=== PATIENT | female | born 2000 | race Caucasian/White ===

== ENCOUNTER → 2022-02-08 15:42 | Outpatient (BNVA) | payer OTHER, SELFPAY | PROVIDERS: Visit Provider Nurse Practitioner Women's Health | DX: Z01.419 Encounter for gynecological examination (general) (routine) without abnormal findings (principal) | CPT/HCPCS: 84702; 88175 ==

== ENCOUNTER → 2023-05-03 08:15 | Outpatient (BNVA) | payer OTHER, SELFPAY | PROVIDERS: Visit Provider Nurse Practitioner Women's Health | DX: Z32.00 Encounter for pregnancy test, result unknown (principal) | CPT/HCPCS: 84702 ==

== ENCOUNTER → 2023-10-24 16:40 | Outpatient (BNVA) | payer OTHER, SELFPAY | PROVIDERS: Visit Provider Nurse Practitioner Women's Health | DX: N92.6 Irregular menstruation, unspecified (principal) | CPT/HCPCS: 84702 ==

== ENCOUNTER → 2023-10-26 15:00 | Outpatient (BNVA) | payer OTHER, SELFPAY | PROVIDERS: Visit Provider Nurse Practitioner Women's Health | DX: N92.6 Irregular menstruation, unspecified (principal) | CPT/HCPCS: 84702 ==

== ENCOUNTER → 2023-11-08 09:35 | Outpatient (BNVA) | payer OTHER, SELFPAY | PROVIDERS: Visit Provider Nurse Practitioner Women's Health | DX: Z36.87 Encounter for antenatal screening for uncertain dates (principal) | CPT/HCPCS: 76817 ==

== ENCOUNTER → 2023-11-13 08:30 | Outpatient (BNVA) | payer MEDICAID, SELFPAY | PROVIDERS: Visit Provider Nurse Practitioner Women's Health | DX: Z34.90 Encounter for supervision of normal pregnancy, unspecified, unspecified trimester (principal); Z83.3 Family history of diabetes mellitus | CPT/HCPCS: 83036; 84315 ==

== ENCOUNTER → 2023-12-06 07:53 | Outpatient (BNVA) | payer MEDICAID, SELFPAY | PROVIDERS: Visit Provider Obstetrics & Gynecology | DX: Z34.01 Encounter for supervision of normal first pregnancy, first trimester (principal); Z34.90 Encounter for supervision of normal pregnancy, unspecified, unspecified trimester | CPT/HCPCS: 80307; 82950; 83036; 84315; 85025; 86592; 86762; 86803; 86850; 86900; 87086; 87340; 87806 ==

== ENCOUNTER → 2023-12-20 10:30 | Outpatient (BNVA) | payer MEDICAID, SELFPAY | PROVIDERS: Visit Provider Obstetrics & Gynecology | DX: Z34.01 Encounter for supervision of normal first pregnancy, first trimester | CPT/HCPCS: 84315; 87491; 87591 ==

== ENCOUNTER → 2024-01-16 07:42 | Outpatient (BNVA) | payer MEDICAID, SELFPAY | PROVIDERS: Visit Provider Nurse Practitioner Women's Health | DX: Z34.01 Encounter for supervision of normal first pregnancy, first trimester (principal); Z34.90 Encounter for supervision of normal pregnancy, unspecified, unspecified trimester | CPT/HCPCS: 82105; 84315 ==

== ENCOUNTER 2024-01-28 14:39 | Emergency (ER) | payer MEDICAID, SELFPAY ==
[2024-01-28 14:44] VITALS: BP 118/75; PULSE 82; RESP 16; TEMP 36.6; O2SAT 98
[2024-01-28 15:47] LABS: Basophils % 0.3 %; Eosinophils # 0.1 10^3/uL (0.0-0.8); Eosinophils % 0.7 %; Hematocrit 36.7 % (36-47); Lymphocytes # 1.9 10^3/uL (0.8-4.8); Lymphocytes % 18.3 %; Mean Corpuscular HGB Conc 33.8 g/dL (30-55); Mean Corpuscular Hemoglobin 30.4 pg (27-33); Mean Platelet Volume 8.8 fL (7.4-10.4); Monocytes # 0.5 10^3/uL (0.2-0.9); Monocytes % 4.4 %; Neutrophils # 8.09 10^3/uL (1.8-7.7); Nucleated Red Blood Cells % 0 %; Platelet Count 246 10^3/cmm (157-399); Red Blood Count 4.08 10^6/uL (3.85-5.65); Red Cell Distribution Width 13.5 % (12.1-15.1); White Blood Count 10.63 10^3/uL (3.29-11.43)
[2024-01-28 16:02] LABS: Alanine Aminotransferase 13 U/L (0-33); Albumin Level 3.9 g/dL (3.5-5.2); Alkaline Phosphatase 65 U/L (35-105); Anion Gap 13.2 (5-19); Aspartate Amino Transferase 14 U/L (0-32); Blood Urea Nitrogen 5 mg/dL (6-20); Calcium 7.7 mg/dL (8.5-10.5); Carbon Dioxide 25 mmol/L (22-29); Chloride 101 mmol/L (98-107); Creatinine Clr Calc Pharmacy 213.7084; Globulin 2.8 g/dL (1.3-4.6); Glomerular Filtration Rate 197.8 mL/min (90-130); Glucose 86 mg/dL (65-115); Lipase 17 U/L (13-60); Osmolality Calculated 277 mOsm/kg (285-295); Potassium 4.2 mmol/L (3.5-5.1); Sodium 135 mmol/L (136-145); Total Bilirubin 0.3 mg/dL (0.15-1.2); Total Protein 6.7 g/dL (6.6-8.7)
== END 2024-01-28 16:19 | disposition left against medical advice (07) ==
PROVIDERS: Emergency Medicine; Emergency Provider Family Medicine
DX: Z53.21 Procedure and treatment not carried out due to patient leaving prior to being seen by health care provider (principal)
CPT/HCPCS: 36415; 80053; 83690; 84315; 85025; 87086

== ENCOUNTER → 2024-02-14 09:23 | Outpatient (BNVA) | payer MEDICAID, SELFPAY | PROVIDERS: Visit Provider Obstetrics & Gynecology | DX: Z34.92 Encounter for supervision of normal pregnancy, unspecified, second trimester (principal) | CPT/HCPCS: 76805 ==

== ENCOUNTER 2024-02-16 14:07 | Outpatient (CLI) | payer MEDICAID, SELFPAY ==
[2024-02-16 14:15] VITALS: BMI 24.3
[2024-02-16 14:30] VITALS: BP 122/65; PULSE 76
[2024-02-16 14:45] VITALS: BP 112/61; PULSE 67
[2024-02-16 15:00] VITALS: BP 110/60; PULSE 68
[2024-02-16 15:13] LABS: Add Urine Culture? Yes; Bacteria Urine 2+ /hpf; Bilirubin Urine Neg (Negative); Blood Urine Neg (Negative); Glucose Urine UA Norm (Normal); Ketones Urine Negative (Negative); Leukocyte Esterase Urine 1+ (Negative); Nitrate Urine Negative (Negative); Protein Urine Neg (Negative); Specific Gravity, Urine 1.015 (1.005-1.030); Squamous Epithelial Cell Urine 0-4 /hpf (0-5); Sulfosalicylic Acid Urine Negative (Negative); Urine Appearance Clear (CLEAR); Urine Color Straw (Yellow); Urobilinogen Urine Norm (Negative); WBC Urine 0-4 /hpf (0-5); pH Urine 8 (5-7)
[2024-02-16 15:15] VITALS: BP 110/59; PULSE 71
[2024-02-16 15:21] VITALS: BP 113/63; PULSE 72
[2024-02-16 15:25] VITALS: BP 113/63; PULSE 72
== END 2024-02-16 15:31 | disposition home or self-care (01) ==
LOC: OPOB 14:11 → OBGYN 14:11
PROVIDERS: Visit Provider Obstetrics & Gynecology
DX: O26.899 Other specified pregnancy related conditions, unspecified trimester (principal); Z3A.00 Weeks of gestation of pregnancy not specified; N23 Unspecified renal colic
CPT/HCPCS: 81001; 87086; 99211

== ENCOUNTER → 2024-03-13 11:09 | Outpatient (BNVA) | payer MEDICAID, SELFPAY | PROVIDERS: Visit Provider Nurse Practitioner Women's Health | DX: Z34.80 Encounter for supervision of other normal pregnancy, unspecified trimester (principal) | CPT/HCPCS: 82950; 84315 ==

== ENCOUNTER → 2024-03-26 14:26 | Outpatient (BNVA) | payer MEDICAID, SELFPAY | PROVIDERS: Visit Provider Nurse Practitioner Women's Health | DX: Z34.83 Encounter for supervision of other normal pregnancy, third trimester (principal) | CPT/HCPCS: 76816 ==

== ENCOUNTER 2024-03-27 14:03 | Outpatient (CLI) | payer MEDICAID, SELFPAY ==
--- NOTE | 2024-03-27 14:15 | US_ITS ---
WS: [id number] ULTRASOUND RENAL TECHNIQUE: Ultrasound examination of both kidneys. CLINICAL INFORMATION: R10.9 - Unspecified abdominal pain COMPARISON: None. FINDINGS: RIGHT: Moderate RIGHT hydronephrosis Echogenicity: Normal. Cortical thickness: 1.1 cm; Normal. Hydronephrosis: Moderate Perinephric fluid: None. Right kidney measures: 10.5 cm x 4.7 cm x 5.9 cm. LEFT: Moderate LEFT hydronephrosis Echogenicity: Normal. Cortical thickness: 1.2 cm; Normal. Hydronephrosis: Moderate Perinephric fluid: None. Left kidney measures: 10.9 cm x 5.1 cm x 4.8 cm. Normal visualized aorta. Normal bladder US/US renal BI* [id number] IMPRESSION: 1. Moderate bilateral hydronephrosis with dilatation of the renal pelvis and p roximal visualized ureters bilaterally. Findings are presumably due to maternal hydronephrosis. 2. Normal bladder.
== END 2024-03-27 14:04 | disposition home or self-care (01) ==
LOC: RAD 14:04
PROVIDERS: PCP Nurse Practitioner Women's Health; Visit Provider Nurse Practitioner Women's Health
DX: N13.30 Unspecified hydronephrosis (principal)
CPT/HCPCS: 76770

== ENCOUNTER → 2024-04-10 07:50 | Outpatient (BNVA) | payer MEDICAID, SELFPAY | PROVIDERS: Visit Provider Obstetrics & Gynecology | DX: Z34.02 Encounter for supervision of normal first pregnancy, second trimester (principal) | CPT/HCPCS: 84315; 85025 ==

== ENCOUNTER → 2024-05-02 16:09 | Outpatient (BNVA) | payer MEDICAID, SELFPAY | PROVIDERS: Visit Provider Nurse Practitioner Women's Health | DX: O26.899 Other specified pregnancy related conditions, unspecified trimester; Z3A.00 Weeks of gestation of pregnancy not specified | CPT/HCPCS: 84315; 87086 ==

== ENCOUNTER → 2024-06-03 10:18 | Outpatient (BNVA) | payer MEDICAID, SELFPAY | PROVIDERS: Visit Provider Nurse Practitioner Women's Health | DX: Z34.02 Encounter for supervision of normal first pregnancy, second trimester (principal) | CPT/HCPCS: 84315; 87081 ==

== ENCOUNTER 2024-06-24 20:12 | Outpatient (CLI) | payer MEDICAID, SELFPAY ==
[2024-06-24] VITALS (13 sets, daily range): BP systolic 104–122; BP diastolic 61–76; PULSE 75–115; BMI 27.4
[2024-06-24 23:13] LABS: Bilirubin Urine Negative (Negative); Blood Urine Negative (Negative); Glucose Urine UA Negative (Normal); Ketones Urine 1+ (Negative); Leukocyte Esterase Urine Trace (Negative); Nitrate Urine Negative (Negative); Protein Urine Trace (Negative); Specific Gravity, Urine 1.028 (1.005-1.030); Urine Appearance Clear (CLEAR); Urine Color Dark Yellow (Yellow)
[2024-06-24 23:18] LABS: Bacteria Urine None Seen /hpf; RBC Urine 0-2 /hpf (0-2); Squamous Epithelial Cell Urine 0-5 /hpf (0-5)
== END 2024-06-24 23:38 | disposition home or self-care (01) ==
LOC: OPOB 20:16 → OBGYN 20:16
PROVIDERS: Visit Provider Obstetrics & Gynecology
DX: O26.899 Other specified pregnancy related conditions, unspecified trimester (principal); Z3A.00 Weeks of gestation of pregnancy not specified; R10.9 Unspecified abdominal pain
CPT/HCPCS: 59025; 81001; 99211

== ENCOUNTER 2024-07-01 18:48 | Inpatient (IN) | payer MEDICAID, SELFPAY ==
[2024-07-01] VITALS (8 sets, daily range): BP systolic 113–125; BP diastolic 67–81; PULSE 84–99; RESP 16; TEMP 35.9; BMI 27.6
[2024-07-01 18:44] LABS: Basophils % 0.2 %; Eosinophils % 0.5 %; Hematocrit 33.4 % (36-47); Lymphocytes # 1.7 10^3/uL (0.8-4.8); Lymphocytes % 19.9 %; Mean Corpuscular HGB Conc 33.5 g/dL (30-55); Mean Corpuscular Hemoglobin 28.7 pg (27-33); Mean Corpuscular Volume 85.6 fl (85-98); Mean Platelet Volume 9.1 fL (7.4-10.4); Monocytes # 0.6 10^3/uL (0.2-0.9); Monocytes % 6.6 %; Neutrophils # 6.08 10^3/uL (1.8-7.7); Neutrophils % 72.6 %; Nucleated Red Blood Cells % 0 %; Platelet Count 211 10^3/cmm (157-399); Red Cell Distribution Width 13.2 % (12.1-15.1); White Blood Count 8.38 10^3/uL (3.29-11.43)
--- NOTE | 2024-07-01 19:35 | PM.OBGYHP ---
Providers/Chief Complaint Admitting Physician: Krishna Mckeon MD Primary PREMIUM CARD CANCELLATION CLERK: Primitivo De Leon MD Chief Complaint: IOL HPI PREMIUM CARD CANCELLATION CLERK History of Present Illness Taina Kruger is a 24 year old female G1 EDC July 01, 2024 At 40 w 0 d No complications Admitted for elective induction of labor No c/o No pain, bleeding, fluid leakage + active movements Present Details : 1 Para: 0 Labs Rubella: Immune RPR: Negative GBS: Positive Medications/Allergies Home Medications Medication Instructions Recorded Confirmed Last Taken Type loratadine 10 mg tablet (Claritin) 10 mg PO DAILY PRN Allergy Symptoms 08/06/20 06/27/24 06/24/24 History [id number] 400 mcg-om3 35 mg-dha 25 tab PO DAILY 11/13/23 06/27/24 06/24/24 History mg-epa 5 mg-fish oil chewable tablet pyridoxine (vitamin B6) 50 mg 50 mg PO BID 11/13/23 06/27/24 Unknown History tablet promethazine 25 mg tablet 25 mg PO Q6H PRN nausea and 01/28/24 06/27/24 Unknown Rx vomiting #60 tabs docosahexaenoic acid 200 mg 200 mg PO DAILY 05/08/24 06/27/24 06/24/24 History capsule ( DHA) Allergies Allergy/AdvReac Type Severity Reaction Status Date / Time No Known Allergies Allergy Verified 06/27/24 15:19 PFS PREMIUM CARD CANCELLATION CLERK PFSH: Medical History Acid reflux No pertinent past medical history neghx: htn,dm,thyroid,dvt/pe PCP: Dr. Simon Surgical History No pertinent past surgical history Family History Sister Diabetes Diabetes mellitus type 1 Brother Diabetes Cancer Diabetes mellitus type 1 Grandmother Diabetes Maternal Father Hypercholesteremia Diabetes mellitus, type 2 Denies family history of Colon cancer Ovarian cancer Clotting disorder Heart disease Breast cancer Bleeding disorder Hypertension Uterine cancer Thyroid disease Stroke Social History Smoking and tobacco/nicotine status: former use of tobacco/nicotine (former vape use) History History History 1 Term 0 Miscarriages/Ectopic Living Children Care LFORIAN Calculator Estimated Delivery Date Method Current WG Current Estimate 07/01/24 Ultrasound #1 40w 1d Other Estimates 06/14/24 LMP (Certain) 42w 4d Specific Issues/Plans N/V- improved at 16wk FLORIAN based on 6 week sonogram echogenic focus of heart-- on 20wk sono; NIPT low risk UTI in -treated with Macrobid on 05/02/24 Vitals/I&O/Wt Last Vital Signs Temp 96.6 F L 07/01/24 22:47 Pulse 71 07/02/24 04:53 Resp 14 07/02/24 05:07 BP 134/73 07/02/24 04:53 O2 Del Method Room Air 07/01/24 18:10 Weight last 48 hrs Weight 171 lb Physical Exam Narrative: Weight 170 lbs; 5?6? VS normal General: comfortable, awake, alert Lungs: clear Cor: RRR Abd: nontender Cervix: 1 ? 2 cm / 50% / -3 / posterior / cephalic Ext: no edema External monitor: heart tracing good variability, + accelerations Data 07/01/24 18:35 Results Labs OB ([facility]): Obstetrics US 03/26/24 Blood Type O Positive 07/01/24 Antibody Screen Negative 07/01/24 Hct 33.4 % (36-47) L 07/01/24 Hgb 11.20 g/dL (11.27-16.99) L 07/01/24 Rho(D) Type Rh positive 07/01/24 Plt Count 211 10^3/cmm (157-399) 07/01/24 Hep Bs Antigen Non-reactive (Nonreactive) 12/06/23 Hepatitis C Antibody Non-reactive (Nonreactive) 12/06/23 Rubella IgG Antibody 123.0 IU/mL (0.0-10.0) H 12/06/23 RPR Nonreactive (Nonreactive) 12/06/23 HIV 1&2 Ab & HIV 1 Ag Non-reactive (Non-Reactiv) 12/06/23 C.trachomatis RNA (TMA) Not detected (NOT DETECTED) 12/20/23 N.gonorrhoeae RNA (TMA) Not detected (NOT DETECTED) 12/20/23 T. vaginalis Amp RNA Not detected (NOT DETECTED) 12/20/23 Chlamydia/GC Comment See note 12/20/23 Glucose 1 Hr 50 gm 77 mg/dL (85-140) L 12/06/23 Gest Glucose Tolerance 84 mg/dL (70-139) 03/13/24 Hemoglobin A1c 4.2 % (4.0-6.0) 12/06/23 Ser , Semi-Qnt 1164.00 mIU/mL 10/26/23 Urine Opiates Screen Negative ng/mL (Negative) 12/06/23 Ur Barbiturates Screen Negative ng/mL (Negative) 12/06/23 Ur Phencyclidine Scrn Negative ng/mL (Negative) 12/06/23 Ur Amphetamines Screen Negative ng/mL (Negative) 12/06/23 U Benzodiazepines Scrn Negative ng/mL (Negative) 12/06/23 Urine Cocaine Screen Negative ng/mL (Negative) 12/06/23 U Marijuana (THC) Screen Negative ng/mL (Negative) 12/06/23 Micro Urine Specimen 05/02/24 Pap Smear Interpret See note 02/08/22 A&P Assessment and plan (1) Encounter for induction of labor: 40 w 0 d Admitted for induction of labor Fetus reassuring Plan Cytotec 25 ug intravaginal (2) GBS carrier: Plan Abx, start when in active labor Attestations Medical Necessity Statement*: patient at 40 w 0 d, admitted for induction of labor Coding Level of Care Code Acute Code for Chg Fwd Diagnoses Encounter for induction of labor Z34.90 GBS carrier Z22.330 Time Spent (min) 30
[2024-07-01] MEDS: miSOPROStol 100 mcg tablet 25 MCG VAGINAL (20:25)
[2024-07-02] VITALS (74 sets, daily range): BP systolic 101–195; BP diastolic 55–145; PULSE 60–173; RESP 14–16; TEMP 36.6–36.7; O2SAT 98–100
[2024-07-02] MEDS: dextrose 5%-lactated ringers 1,000 ML 125 ML IV ×2 (02:31→12:56)
[2024-07-02] MEDS: oxytocin 30 UNIT/500 ML BAG IV (03:51)
[2024-07-02] MEDS: acetaminophen 325 mg Tablet 650 MG PO (04:01)
[2024-07-02] MEDS: fentaNYL 50 mcg/mL INJ 2mL IVP ×3 (05:07→09:04)
[2024-07-02] MEDS: ampicillin 2,000 MG in sodium chloride 0.9% (plus) 50 ML 100 MG IV (08:25)
[2024-07-02] MEDS: ondansetron 2 mg/ML SDV 2 mL 4 MG IVP (08:47)
[2024-07-02] MEDS: lactated ringers 1,000 ML 999 ML IV (09:15)
--- NOTE | 2024-07-02 10:00 | P.ANESASSM_ITS ---
Pre-Anesthetic Assessment Height/Weight: Height 5 ft 6 in Weight 171 lb Temp Pulse Resp BP Pulse Ox O2 Del Method 96.6 F L 89 15 115/55 100 Room Air 07/01/24 22:47 07/02/24 15:50 07/02/24 09:04 07/02/24 15:50 07/02/24 11:57 07/01/24 18:10 Preop Diagnosis: Requesting labor epidural Was Beta Kailey taken within 24 hours: N/A Was Clonidine taken within 24 hours: N/A Social No alcohol and No tobacco Exam alert, oriented x 3, clear to auscultation bilaterally and regular rate & rhythm Airway Submandibular: within normal limits Cervical ROM: within normal limits Mallampati: Class I Dentition: full Anesthetic Plan ASA status: 2 Anesthesia: Regional (specify below) Other: No prior issues with anesthesia G1, P0, requesting epidural Labs reviewed and acceptable for procedure today Patient denies any issues with Plan for labor epidural Medications/Allergies Home Medications Medication Instructions Recorded Confirmed Last Taken Type loratadine 10 mg tablet (Claritin) 10 mg PO DAILY PRN Allergy Symptoms 08/06/20 06/27/24 06/24/24 History [id number] 400 mcg-om3 35 mg-dha 25 tab PO DAILY 11/13/23 06/27/24 06/24/24 History mg-epa 5 mg-fish oil chewable tablet pyridoxine (vitamin B6) 50 mg 50 mg PO BID 11/13/23 06/27/24 Unknown History tablet promethazine 25 mg tablet 25 mg PO Q6H PRN nausea and 01/28/24 06/27/24 Unknown Rx vomiting #60 tabs docosahexaenoic acid 200 mg 200 mg PO DAILY 05/08/24 06/27/24 06/24/24 History capsule ( DHA) Allergies Allergy/AdvReac Type Severity Reaction Status Date / Time No Known Allergies Allergy Verified 06/27/24 15:19 PFSH Anesthesia Medical History Acid reflux No pertinent past medical history neghx: htn,dm,thyroid,dvt/pe PCP: Dr. Simon Surgical History No pertinent past surgical history Family History Sister Diabetes Diabetes mellitus type 1 Brother Diabetes Cancer Diabetes mellitus type 1 Grandmother Diabetes Maternal Father Hypercholesteremia Diabetes mellitus, type 2 Denies family history of Colon cancer Ovarian cancer Clotting disorder Heart disease Breast cancer Bleeding disorder Hypertension Uterine cancer Thyroid disease Stroke Social History Smoking and tobacco/nicotine status: former use of tobacco/nicotine (former vape use) Female Reproductive History : 1 Data Anesthesia 07/01/24 18:35 Short CBC 07/01/24 Range/Units 18:35 WBC 8.38 (3.29-11.43) 10^3/uL Hgb 11.20 L (11.27-16.99) g/dL Hct 33.4 L (36-47) % MCV 85.6 (85-98) fl Plt Count 211 (157-399) 10^3/cmm Neut % (Auto) 72.6 % Neut # (Auto) 6.08 (1.8-7.7) 10^3/uL Blood Bank 07/01/24 18:35 Blood Type O Positive Rho(D) Type Rh positive Antibody Screen Negative Cardiac Studies: 2 No Data to Display
--- NOTE | 2024-07-02 10:12 | ANES.PROC ---
Anesthesia Procedures Procedure/Date: 07/02/24 Epidural: Time Out Performed: Yes Consents Signed: Procedure Consent Consent: requested by attending/covering physician and from patient Lumbar Level: L3-L4 Thoracic Level: T10-T11 Epidural position: sitting Epidural procedure: sterile prep of area, 1% lidocaine to numb the area, 18 g needle, negative for paresthesia passed, neg for paresthesia, test dose given, 1.5% xylocaine 1:200k epi, 0.2% Ropivacaine bolus ml, placed PCEA, no systemic response, sterile dressing applied, L.U.D. no apparent complications and 0.2% Ropiavacaine @ mls/hr (10 mL/h)
[2024-07-02] MEDS: ROPivacaine syringe 100 MG/50 ML SYRINGE 10 MG EPIDURAL ×2 (10:26→14:11)
[2024-07-02] MEDS: ampicillin 1,000 MG in sodium chloride 0.9% (plus) 50 ML 100 MG IV (12:57)
--- NOTE | 2024-07-02 15:37 | PM.DELIVERY ---
Delivery Note: Date of delivery: July 02, 2024 Pre-delivery diagnoses: Term Post-delivery diagnoses: Term delivered Procedure: Spontaneous vaginal delivery Delivering Physician: Primitivo De Leon MD Estimated blood loss (mL): 300 Pre-Delivery Course: Ms. Kruger is a 24 year old established patient with LMP of 09/08/2023, FLORIAN of 07/01/2024 based of of 6 week dating ultrasound placing her at 40 weeks CC: Admitted for elective induction. HPI: Received appropriate care. Daily vitamins since start of care. labs have all been normal, including negative for HIV. She was found to positive for Group B Strep from screening at 36 weeks. She has gained approximately 24 lbs throughout the . She denies a history of HTN during . Glucose tolerance screening for gestational diabetes was negative. Delivery: The patient was noted to be complete and pushing, so was placed in the dorsal lithotomy position, prepped and draped in the usual sterile fashion for a vaginal delivery. Pt. Noted to have epidural anesthesia. At 1509 the patient delivered a viable term female infant weighing 2930 g with scores of 8 and 9 at one and five minutes, respectively. The vertex was delivered spontaneously over intact perineum. The patient was asked to push and the head delivered spontaneously in the KIZZY position, over an intact perineum. A nuchal cord was checked and one noted, and delivered through around head as necessary. The anterior shoulder delivered easily and the posterior shoulder followed. The remainder of the infant was easily delivered and the oropharynx and nasopharynx was bulb suctioned. The was noted to have spontaneous cry and spontaneous movement of all four extremities. The cord was clamped x 2 and cut and noted to have 2 arteries and one vein. The was passed to the mother's abdomen where nursing personnel were in attendance. Cord blood sample was then obtained. The placenta delivered intact spontaneously and the uterus was explored. 20 units of Pitocin was placed in the IV bag to firm the uterus. Examination of the cervix and vaginal vault did not reveal any lacerations. Examination of the perineum showed first-degree laceration. The laceration was repaired with 3-0 Vicryl in the normal fashion in a running non locking fashion to reapproximate the laceration in layers. The vaginal pack was then removed. The patient tolerated this procedure well, and recovered in L&D with her in their LDR room. All sponge and needle counts were correct. Post-Delivery Status: Good and stable History History History 1 Term 0 Miscarriages/Ectopic Living Children A&P Assessment and plan (1) Term delivered: Plan observation Coding Level of Care Code Acute Code for Chg Fwd Diagnoses Term delivered O80
--- NOTE | 2024-07-02 19:00 | ANE.PACU2 ---
Inpatient post-anesthesia follow up: Airway intact: Yes Vital signs: Temperature 99.1 F Pulse Rate 66 Respiratory Rate 16 Blood Pressure 134/75 Pulse Oximetry 98 Oxygen Delivery Me thod Room Air Oxygen Flow Rate Fraction of Inspir ed Oxygen Hydration adequate: Yes Nausea and vomiting: No Pain level: 1 Mental status: Baseline Epidural Start/End: Epidural Start Date: 07/02/24 Epidural Start Time: 10:12 Epidural End Date: 07/02/24 Epidural End Time: 18:34
[2024-07-02] MEDS: docusate sodium 100 mg Capsule PO (20:15)
[2024-07-02] MEDS: ibuprofen 800 mg tablet PO (20:16)
[2024-07-02] MEDS: benzocaine-menthol 78 gm Canister 1 SPRAY TOPICAL (20:16)
[2024-07-03 03:40] VITALS: BP 110/66; PULSE 70; RESP 16; TEMP 36.8; O2SAT 98
[2024-07-03 04:27] LABS: Mean Corpuscular HGB Conc 32.9 g/dL (30-55); Mean Corpuscular Hemoglobin 28.7 pg (27-33); Mean Corpuscular Volume 87.3 fl (85-98); Mean Platelet Volume 9.3 fL (7.4-10.4); Platelet Count 193 10^3/cmm (157-399); Red Blood Count 3.55 10^6/uL (3.85-5.65); Red Cell Distribution Width 13.2 % (12.1-15.1); White Blood Count 12.89 10^3/uL (3.29-11.43)
[2024-07-03] MEDS: docusate sodium 100 mg Capsule PO (08:48)
[2024-07-03] MEDS: PRENATAL VIT NO.130/IRON/FOLIC 1 EACH TABLET PO (08:48)
[2024-07-03] MEDS: ibuprofen 800 mg tablet PO ×2 (08:48→15:18)
[2024-07-03 10:00] VITALS: BP 115/78; PULSE 78; TEMP 36.9
--- NOTE | 2024-07-03 12:31 | PM.OBGYDC ---
Discharge Providers INSPECTOR FLOOR SUB ASSEMBLY Date of Admission: 07/01/24 18:48 Date of Discharge: 07/03/24 Attending Provider at Admission: Krishna Mckeon MD Attending Provider at Discharge: Krishna Mckeon MD Diagnoses at Discharge Discharge Diagnosis (1) Term delivered: Status: Acute Reason for Visit Reason for Visit: IOL Hospital Course Hospital Course Ms. Kruger is a 24 year old established patient with LMP of 09/08/2023, FLORIAN of 07/01/2024 based of of 6 week dating ultrasound placing her at 40 weeks CC: Admitted for elective induction. HPI: Received appropriate care. Daily vitamins since start of care. labs have all been normal, including negative for HIV. She was found to positive for Group B Strep from screening at 36 weeks. She has gained approximately 24 lbs throughout the . She denies a history of HTN during . Glucose tolerance screening for gestational diabetes was negative. She progressed to have a spontaneous vaginal delivery without complications. She delivered a viable term female infant weighing 2930 g with scores of 8 and 9. overnight observation has been uneventful. Tolerating diet well. Ambulating without difficulty. She is afebrile hemodynamically stable day 1. She was counseled regarding pelvic rest for 6 weeks (no sex, no tampons, no vaginal douches). Return to the emergency room if any fever, increased bleeding or pain. Physical Exam Narrative: GA; alert and oriented x 3 HEENT: normal Breasts: engorged Nipples - skin intact Lungs; clear to auscultation Heart: regular rhythm, no murmurs. Abd: Appropriately tender. BS+. Uterine fundus below umbilicus. No Fundal Tenderness. Perineum: normal lochia. Extremities: no edema, no cyanosis, no tenderness. Urinary Catheter Management: Saleem: Cath Placed During This Visit: yes, but has since been removed by the nurse Reason for Continuing Indwelling Catheter: Decision to DC Catheter Urinary Catheter Date of Insertion: 07/02/24 Urinary Catheter Time of Insertion: 10:51 Date Urinary Catheter Removed: 07/02/24 Time Urinary Catheter Discontinued: 14:30 History History History 1 Term 0 Miscarriages/Ectopic Living Children Discharge Data Studies Completed and Pending Laboratory Results WBC 12.89 10^3/uL (3.29-11.43) H 07/03/24 03:40 RBC 3.55 10^6/uL (3.85-5.65) L 07/03/24 03:40 Hgb 10.20 g/dL (11.27-16.99) L 07/03/24 03:40 Hct 31.0 % (36-47) L 07/03/24 03:40 MCV 87.3 fl (85-98) 07/03/24 03:40 MCH 28.7 pg (27-33) 07/03/24 03:40 MCHC 32.9 g/dL (30-55) 07/03/24 03:40 RDW 13.2 % (12.1-15.1) 07/03/24 03:40 Plt Count 193 10^3/cmm (157-399) 07/03/24 03:40 MPV 9.3 fL (7.4-10.4) 07/03/24 03:40 Neut % (Auto) 72.6 % 07/01/24 18:35 Lymph % (Auto) 19.9 % 07/01/24 18:35 [place] % (Auto) 6.6 % 07/01/24 18:35 Eos % (Auto) 0.5 % 07/01/24 18:35 Baso % (Auto) 0.2 % 07/01/24 18:35 Neut # (Auto) 6.08 10^3/uL (1.8-7.7) 07/01/24 18:35 Lymph # (Auto) 1.7 10^3/uL (0.8-4.8) 07/01/24 18:35 [place] # (Auto) 0.6 10^3/uL (0.2-0.9) 07/01/24 18:35 Eos # (Auto) 0.0 10^3/uL (0.0-0.8) 07/01/24 18:35 Baso # (Auto) 0.0 10^3/uL (0.0-0.1) 07/01/24 18:35 Nucleated RBC % (auto) 0 % 07/01/24 18:35 Nucleated RBCs # 0.0 /100WBC 07/01/24 18:35 Blood Type O Positive 07/01/24 18:35 Rho(D) Type Rh positive 07/01/24 18:35 Antibody Screen Negative 07/01/24 18:35 Vitals Last Vital Signs Temp 98.3 F 07/03/24 03:40 Pulse 70 07/03/24 03:40 Resp 16 07/03/24 03:40 BP 110/66 07/03/24 03:40 Pulse Ox 98 07/03/24 03:40 O2 Del Method Room Air 07/03/24 03:40 Results Labs OB ([facility]): Obstetrics US 03/26/24 Blood Type O Positive 07/01/24 Antibody Screen Negative 07/01/24 Hct 31.0 % (36-47) L 07/03/24 Hgb 10.20 g/dL (11.27-16.99) L 07/03/24 Rho(D) Type Rh positive 07/01/24 Plt Count 193 10^3/cmm (157-399) 07/03/24 Hep Bs Antigen Non-reactive (Nonreactive) 12/06/23 Hepatitis C Antibody Non-reactive (Nonreactive) 12/06/23 Rubella IgG Antibody 123.0 IU/mL (0.0-10.0) H 12/06/23 RPR Nonreactive (Nonreactive) 12/06/23 HIV 1&2 Ab & HIV 1 Ag Non-reactive (Non-Reactiv) 12/06/23 C.trachomatis RNA (TMA) Not detected (NOT DETECTED) 12/20/23 N.gonorrhoeae RNA (TMA) Not detected (NOT DETECTED) 12/20/23 T. vaginalis Amp RNA Not detected (NOT DETECTED) 12/20/23 Chlamydia/GC Comment See note 12/20/23 Glucose 1 Hr 50 gm 77 mg/dL (85-140) L 12/06/23 Gest Glucose Tolerance 84 mg/dL (70-139) 03/13/24 Hemoglobin A1c 4.2 % (4.0-6.0) 12/06/23 Ser , Semi-Qnt 1164.00 mIU/mL 10/26/23 Urine Opiates Screen Negative ng/mL (Negative) 12/06/23 Ur Barbiturates Screen Negative ng/mL (Negative) 12/06/23 Ur Phencyclidine Scrn Negative ng/mL (Negative) 12/06/23 Ur Amphetamines Screen Negative ng/mL (Negative) 12/06/23 U Benzodiazepines Scrn Negative ng/mL (Negative) 12/06/23 Urine Cocaine Screen Negative ng/mL (Negative) 12/06/23 U Marijuana (THC) Screen Negative ng/mL (Negative) 12/06/23 Micro Urine Specimen 05/02/24 Pap Smear Interpret See note 02/08/22 Discharge Plan Discharge Patient Disposition: Home Condition: Stable Prescriptions: New docusate sodium [Colace] 100 mg capsule 100 mg PO BID Qty: 60 0RF ibuprofen 800 mg tablet 800 mg PO TID PRN (Reason: pain) Qty: 60 0RF acetaminophen 325 mg capsule 325 mg PO Q4H PRN (Reason: fever or pain) Qty: 60 0RF ferrous sulfate [Iron (ferrous sulfate)] 325 mg (65 mg iron) tablet 325 mg PO BID Qty: 60 0RF Continued loratadine [Claritin] 10 mg tablet 10 mg PO DAILY PRN (Reason: Allergy Symptoms) pyridoxine (vitamin B6) 50 mg tablet 50 mg PO BID [id number] oil 400 mcg-35 mg -25 mg-5 mg tablet,chewable PO DAILY DHA 200 mg capsule 200 mg PO DAILY promethazine 25 mg tablet 25 mg PO Q6H PRN (Reason: nausea and vomiting) Qty: 60 0RF Rx Instructions: take 1-2 tablets every 6 hours PRN Discharge Orders: Discharge Order (Routine); Ordered 07/03/24 Ordered By: Primitivo De Leon Referrals: Primitivo De Leon MD [Physician] - 6 Weeks Discharge Diet: Usual diet Discharge Activity: Limit activity as instructed Patient Instructions: Depression (DC), Opioid Safety (DC), Preeclampsia and Eclampsia After Delivery (GEN), Hemorrhage (DC), OB Discharge Report, OB Food/Drug Interaction Guide, Opioid Safety, OB Home Care, OB Vaginal Deliveries - [facility], Abnormal Bleeding Activity Restrictions/Additional Instructions: 1. Please call [facility] on next working day to make your post-operative appointment in 2 weeks. 2. Please stay home until you come back to the clinic on first post-hospatilization check up. 3. Please follow instructions on your medications CAREFULLY. 4. If you have abdominal incision, do not cover it unless dressing is necessary because of drainage. OK to shower, but avoid bath. Leave steri-strips until they fall off. If they are still on one week after surgery, you may remove them. 5. If you had vaginal surgery or vaginal repair, Dr. De Leon may instruct you to take SITZ bath. 6. Yellow, blood tinged odorous vaginal discharge is usually normal after hysterectomy or vaginal surgeries. 7. No SEXUAL INTERCOURSE, tampons, or douches until you are completely released from the post-operative care. 8. Avoid constipation by eating right and maybe using some Metamucil or Milk of Magnesia. 9. All prescription refills are given during the working hours. Please do no wait till it runs out. Call the clinic at [phone] before your medication runs out. The clinic will get in touch with your doctor to prescribe medications if necessary. 10. Please remain within 40 mile radius from our hospital because emergencies do happen now and then during the post-operative period. 11. If you have stairs at home, take one step at a time slowly and minimize the number of trips. It helps to stay in one floor for the next few days. No lifting except what you can lift by one hand until you are released from the post-operative care. 12. Driving is discouraged until you are well healed. It may be 3-4 weeks before you feel strong enough to drive. You should be able to turn and look through the rear window without pain and you should be able to push the brake pedal very hard without pain before you drive. No fast rules, but SAFETY should be your primary concern. DO NOT drive if you are on sedating medications such as narcotics. 13. Call the clinic (during working hours) to make urgent appointment or go to the Emergency room, if any of the following occurs: i. Vaginal bleeding becomes heavy, more than a period. ii. Incision becomes red and sore, or drains pus. iii. Your TEMPERATURE is over 100.4F or you have chill. iv. IV site becomes red and swollen (a little ``knot?? is usually OK) v. Persistent nausea and vomiting vi. Persistent constipation or diarrhea vii. Rash or allergic reaction to medications. Discharge Attestations INS[employer]BLY Time Spent in Discharge Care*: greater than 30 min Coding Level of Care Code Acute Code for Chg Fwd Diagnoses Term delivered O80
[2024-07-03 18:31] VITALS: BP 134/75; PULSE 66; TEMP 37.3
== END 2024-07-03 18:33 | disposition home or self-care (01) | DRG 807 ==
LOC: OBGYN 19:53 → OPOB 07-07 13:27
PROVIDERS: Obstetrics & Gynecology; Admitting Provider Obstetrics & Gynecology; Visit Provider Obstetrics & Gynecology
DX: O99.824 Streptococcus B carrier state complicating childbirth (principal); Z37.0 Single live birth; O70.0 First degree perineal laceration during delivery; Z3A.40 40 weeks gestation of pregnancy
CPT/HCPCS: 36415; 51702; 59025; 59409; 85025; 85027; 86850; 86900; 96374; 96376; J0290; J2405; J2590; J2795; J3010; J7120; J7121

== ENCOUNTER 2025-03-14 20:57 | Day surgery (SDC) | payer MEDICAID, SELFPAY ==
[2025-03-14 21:12] VITALS: BP 113/70; PULSE 80; RESP 18; TEMP 36.8; O2SAT 98; BMI 24.2
[2025-03-14 22:06] LABS: Basophils % 0.2 %; Eosinophils % 0.3 %; Hematocrit 38.5 % (36-47); Lymphocytes # 1.6 10^3/uL (0.8-4.8); Lymphocytes % 13.5 %; Mean Corpuscular HGB Conc 32.5 g/dL (30-55); Mean Corpuscular Hemoglobin 27.6 pg (27-33); Mean Platelet Volume 8.7 fL (7.4-10.4); Monocytes # 0.6 10^3/uL (0.2-0.9); Monocytes % 4.9 %; Neutrophils # 9.76 10^3/uL (1.8-7.7); Neutrophils % 80.7 %; Nucleated Red Blood Cells % 0 %; Platelet Count 284 10^3/cmm (157-399); Red Blood Count 4.53 10^6/uL (3.85-5.65)
[2025-03-14 22:26] LABS: Alanine Aminotransferase 19 U/L (0-33); Albumin Level 4.4 g/dL (3.5-5.2); Alkaline Phosphatase 112 U/L (35-105); Anion Gap 16.9 (5-19); Aspartate Amino Transferase 19 U/L (0-32); Blood Urea Nitrogen 10 mg/dL (6-20); Calcium 9.1 mg/dL (8.5-10.5); Carbon Dioxide 24 mmol/L (22-29); Chloride 101 mmol/L (98-107); Creatinine Clr Calc Pharmacy 170.5075; Globulin 2.6 g/dL (1.3-4.6); Glomerular Filtration Rate 150.3 mL/min (90-130); Glucose 105 mg/dL (65-115); Lipase 19 U/L (13-60); Osmolality Calculated 285 mOsm/kg (285-295); Potassium 3.9 mmol/L (3.5-5.1); Sodium 138 mmol/L (136-145); Total Bilirubin 0.3 mg/dL (0.15-1.2)
[2025-03-14 22:31] LABS: HCG, Serum Qual Negative (Negative)
[2025-03-14 22:50] LABS: Bilirubin Urine Negative (Negative); Blood Urine Non-haemolysed trace (Negative); Glucose Urine UA Negative (Normal); Ketones Urine 2+ (Negative); Leukocyte Esterase Urine Negative (Negative); Nitrate Urine Negative (Negative); Protein Urine Trace (Negative); Specific Gravity, Urine 1.028 (1.005-1.030); Urine Appearance Clear (CLEAR); Urine Color Yellow (Yellow)
[2025-03-14 22:55] LABS: Add Urine Microscopic? YES; Bacteria Urine None Seen /hpf; Hyaline Casts Urine 0.81 /lpf; Squamous Epithelial Cell Urine 0-5 /hpf (0-5); WBC Urine 0-5 /hpf (0-5)
--- NOTE | 2025-03-14 22:57 | CTR_ITS ---
PROCEDURE INFORMATION: Exam: CT Abdomen And Pelvis With Contrast Exam date and time: 03/14/2025 11:15 PM Age: 25 years old Clinical indication: Abdominal pain; C/O epigastric and rlq pain TECHNIQUE: Imaging protocol: Computed tomography of the abdomen and pelvis with contrast. Radiation optimization: All CT scans at this facility use at least one of these dose optimization techniques: automated exposure control; mA and/or kV adjustment per patient size (includes targeted exams where dose is matched to clinical indication); or iterative reconstruction. Contrast material: OMNI 350; Contrast volume: 100 ml; Contrast route: INTRAVENOUS (IV); COMPARISON: US renal BI* [id number] 03/27/2024 2:23 PM RADIATION DOSE METRICS: Total DLP (mGy-cm): 489.85 FINDINGS: Lungs: The visualized lung bases are clear. Liver: Liver shows a few minute cystic foci. No suspicious mass. Gallbladder and biliary ducts: No calcified gallstones or biliary dilation identified. Pancreas: Unremarkable with no suspicious mass. No ductal dilation. Spleen: The spleen is not enlarged. No suspicious enhancing mass is noted. Adrenal glands: Normal. No mass. Kidneys and ureters: No solid renal mass or hydronephrosis. Stomach and bowel: The colon is rather fecal filled. No small bowel obstruction, abscess or free air. Appendix: The appendix is inflamed. It measures up to about 1.3 cm. Minimal surrounding free fluid. It contains appendicoliths. Wall enhancement. Intraperitoneal space: Trace pelvic free fluid is probably physiologic. No abscess or free air. Vasculature: No AAA or acute vascular lesion identified. Lymph nodes: No enlarged lymph nodes. Urinary bladder: Unremarkable as visualized. Reproductive: Right ovarian 2.2 cm cyst or follicle. Bones/joints: No acute fracture. Soft tissues: Tiny fat umbilical hernia. CT/CT abdomen pelvis w con* [id number] IMPRESSION: 1. Acute appendicitis, no abscess or free air. 2. Small right ovarian cyst or follicle with trace free fluid. 3. Call to provider has been initiated.
[2025-03-14] MEDS: sodium chloride 0.9% 1,000 ML 999 ML IV (23:06)
[2025-03-14] MEDS: ondansetron 2 mg/ML SDV 2 mL 4 MG IVP (23:06)
[2025-03-14] MEDS: morphine 4 mg/mL SDV 1 mL IVP (23:06)
[2025-03-14] MEDS: iohexol 350 mg/mL 500 mL Btl (per mL) IV (23:15)
--- NOTE | 2025-03-14 23:56 | ED_ITS ---
HPI - Abdominal Pain 2 General: Chief Complaint: Abdominal Pain Stated Complaint: Lower R side ABD Pain going up C/B Time Seen by Provider: 03/14/25 21:57 History of Present Illness: 25-year-old female patient presents to [facility] emergency department with acute onset of right lower quadrant pain. Patient complains of nausea and vomiting. Patient denies any fever. Patient denies any chest pain or shortness of breath. Patient denies any other complaints Related Data Date of Last Menstrual Period: 03/02/25 Home Medications ?Medication ?Instructions ?Recorded ?Confirmed loratadine 10 mg tablet (Claritin) 10 mg PO DAILY PRN Allergy Symptoms 08/06/20 08/29/24 docosahexaenoic acid 200 mg 200 mg PO DAILY 05/08/24 1 10/29/23 capsule ( DHA) Previous Rx's ?Medication ?Instructions ?Recorded acetaminophen 325 mg capsule 325 mg PO Q4H PRN fever o r pain 07/03/24 #60 caps docusate sodium 100 mg capsule 100 mg PO BID #60 caps 07/03/24 (Colace) ibuprofen 800 mg tablet 800 mg PO TID PRN pain #60 t abs 07/03/24 sertraline 25 mg tablet (Zoloft) 25 mg PO DAILY #30 ta bs 09/18/24 Allergies Allergy/AdvReac Type Severity Reaction Status Date / Time No Known Allergies Allergy Verified 08/29/24 13:53 PFS ED 2 PFSH: Medical History Acid reflux No pertinent past medical history neghx: htn,dm,thyroid,dvt/pe PCP: Dr. Simon Surgical History No pertinent past surgical history Family History Sister Diabetes Diabetes mellitus type 1 Brother Diabetes Cancer Diabetes mellitus type 1 Grandmother Diabetes Maternal Father Hypercholesteremia Diabetes mellitus, type 2 Denies family history of Colon cancer Ovarian cancer Clotting disorder Heart disease Breast cancer Bleeding disorder Hypertension Uterine cancer Thyroid disease Stroke Social History Smoking and tobacco/nicotine status: former use of tobacco/nicotine (former vape use) Female Reproductive History: Date of last menstrual period: 03/02/25 Physical Exam 2 Const: COMMON NORMALS: no acute distress, patient oriented x3, alert and well nourished GENERAL APPEARANCE: well kempt HENMT: COMMON NORMALS: normocephalic and atraumatic HEAD & SCALP: n ormocephalic and atraumatic Neck/C-Spine: COMMON NORMALS: full ROM and Thyroid normal THYROID: Thyroid normal Lymph: LYMPHATIC: no lymphadenopathy noted Chest: CHEST: Yes Symmetrical chest wall rise Resp: COMMON NORMALS: normal respiratory effort Cardio: COMMON NORMALS: regular rate and regular rhythm RATE: regular rate RHYTHM: regular rhythm GI: COMMON NORMALS: Soft to palpation INSPECTION: Yes normal to inspection PALPATION: Yes Soft to palpation : COMMON NORMALS: No no CVA tenderness BLADDER/KIDNEY EXAM: No no CVA tenderness EXTERNAL FEMALE EXAM: Yes normal appearance of the urethra S PECULUM EXAM - VAGINA: No laceration and No lesion Back/Pelvis: COMMON NORMALS: negative for no CVA tenderness LUMBAR SPINE/LOWER BACK: Yes normal to inspection and No pain with ROM PELVIS: Yes no pain with anterior-posterior compression, Yes no pain with lateral compression and No tenderness over symphysis pubis Extremity: GENERAL: Yes normal exam except as noted, No calf tenderness and No cyanosis Neuro: COMMON NORMALS: patient oriented x3 SENSORIUM/ORIENTATION: Yes alert SPEECH: speech normal Psych: COMMON NORMALS: mental status grossly normal, Normal thought process present, cooperative, normal affect and speech normal APPEARANCE: Yes grossly normal and Yes well kempt ATTITUDE: Yes calm ACTIVITY/MOTOR BEHAVIOR: Yes appropriate eye contact SPEECH: Yes normal speech MOOD & AFFECT: Yes euthymic mood THOUGHT PROCESS: Normal thought process present A TTENTION/CONCENTRATION: Yes attention grossly intact Skin: COMMON NORMALS: no rashes or lesions noted GENERAL SKIN EXAM: no rashes or lesions noted Course 2 Vital Signs: Vital signs: Vital Signs Temperature 98.3 F 03/14/25 21:12 Pulse Rate 80 03/14/25 21:12 Respiratory Rate 18 03/14/25 21:12 Blood Pressure 113/70 03/14/25 21:12 Pulse Oximetry 98 03/14/25 21:12 Oxygen Delivery Me thod Room Air 03/14/25 21:12 MDM - Abdominal Pain Medical Decision Making 25-year-old female patient presents to the emergency department with acute onset of right lower quadrant pain nausea and vomiting. Patient is afebrile. Patient's vital signs are stable. Patient was given 4 mg of morphine IV as well as 4 mg of Zofran and 1 L of normal saline bolus. CT abdomen and pelvis ordered for evaluation of right lower quadrant pain. CT reveals acute appendicitis I called and discussed this case with surgeon Dr. Hernandez Encarnacion is there patient will be admitted to him at this time. Blood cultures ordered Zosyn IV ordered as well as Toradol 15 mg IV and maintenance fluids ordered at this time patient is resting comfortably Lab Data 03/14/25 22:00 03/14/25 22:00 Labs/Radiology: Laboratory Results WBC 12.10 10^3/uL (3.29-11.43) H 03/14/25 22:00 RBC 4.53 10^6/uL (3.85-5.65) 03/14/25 22:00 Hgb 12.50 g/dL (11.27-16.99) 03/14/25 22:00 Hct 38.5 % (36-47) 03/14/25 22:00 MCV 85.0 fl (85-98) 03/14/25 22:00 MCH 27.6 pg (27-33) 03/14/25 22:00 MCHC 32.5 g/dL (30-55) 03/14/25 22:00 RDW 13.0 % (12.1-15.1) 03/14/25 22:00 Plt Count 284 10^3/cmm (157-399) 03/14/25 22:00 MPV 8.7 fL (7.4-10.4) 03/14/25 22:00 Neut % (Auto) 80.7 % 03/14/25 22:00 Lymph % (Auto) 13.5 % 03/14/25 22:00 [place] % (Auto) 4.9 % 03/14/25 22:00 Eos % (Auto) 0.3 % 03/14/25 22:00 Baso % (Auto) 0.2 % 03/14/25 22:00 Neut # (Auto) 9.76 10^3/uL (1.8-7.7) H 03/14/25 22:00 Lymph # (Auto) 1.6 10^3/uL (0.8-4.8) 03/14/25 22:00 [place] # (Auto) 0.6 10^3/uL (0.2-0.9) 03/14/25 22:00 Eos # (Auto) 0.0 10^3/uL (0.0-0.8) 03/14/25 22:00 Baso # (Auto) 0.0 10^3/uL (0.0-0.1) 03/14/25 22:00 Nucleated RBC % (auto) 0 % 03/14/25 22:00 Nucleated RBCs # 0.0 /100WBC 03/14/25 22:00 Sodium 138 mmol/L (136-145) 03/14/25 22:00 Potassium 3.9 mmol/L (3.5-5.1) 03/14/25 22:00 Chloride 101 mmol/L (98-107) 03/14/25 22:00 Carbon Dioxide 24 mmol/L (22-29) 03/14/25 22:00 Anion Gap 16.9 (5-19) 03/14/25 22:00 BUN 10 mg/dL (6-20) 03/14/25 22:00 Creatinine 0.5 mg/dL (0.5-0.9) 03/14/25 22:00 GFR Calculation 150.3 mL/min (90-130) H 03/14/25 22:00 Glucose 105 mg/dL (65-115) 03/14/25 22:00 Calculated Osmolality 285 mOsm/kg (285-295) 03/14/25 22:00 Calcium 9.1 mg/dL (8.5-10.5) 03/14/25 22:00 Total Bilirubin 0.3 mg/dL (0.15-1.2) 03/14/25 22:00 AST 19 U/L (0-32) 03/14/25 22:00 ALT 19 U/L (0-33) 03/14/25 22:00 Alkaline Phosphatase 112 U/L (35-105) H 03/14/25 22:00 Total Protein 7.0 g/dL (6.6-8.7) 03/14/25 22:00 Albumin 4.4 g/dL (3.5-5.2) 03/14/25 22:00 Globulin 2.6 g/dL (1.3-4.6) 03/14/25 22:00 Lipase 19 U/L (13-60) 03/14/25 22:00 HCG, Qual Negative (Negative) 03/14/25 22:00 Urine Color Yellow (Yellow) 03/14/25 22:38 Urine Appearance Clear (CLEAR) 03/14/25 22:38 Urine pH 7.0 (5-7) 03/14/25 22:38 Ur Specific [place] 1.028 (1.005-1.030) 03/14/25 22:38 Urine Protein Trace (Negative) A 03/14/25 22:38 Urine Glucose (UA) Negative (Normal) 03/14/25 22: Urine Ketones 2+ (Negative) H 03/14/25 22:38 Urine Blood Non-haemolysed trace (Negative) 03/14/25 22:38 Urine Nitrate Negative (Negative) 03/14/25 22:38 Urine Bilirubin Negative (Negative) 03/14/25 22:38 Urine Urobilinogen 1.0 mg/dL (Negative) 03/14/25 22:38 Ur Leukocyte Esterase Negative (Negative) 03/14/25 22:38 Urine RBC 6-10 /hpf (0-2) 03/14/25 22:38 Urine WBC 0-5 /hpf (0-5) 03/14/25 22:38 Ur Squamous Epith Cells 0-5 /hpf (0-5) 03/14/25 22:38 Amorphous Sediment Not Reportable 03/14/25 22:38 Urine Bacteria None seen /hpf (NONE) 03/14/25 22:38 Hyaline Casts 0.81 /lpf 03/14/25 22:38 All radiology interpretation(s) finalized by discharge Discharge Plan Discharge Patient Disposition: Admitted As Inpatient Clinical Impression: Acute appendicitis Condition: Stable Coding Level of Care Code ED Parts Driver for Rudy Cade
[2025-03-14] MEDS: HYDROmorphone 0.5 MG/0.5 ML INJ IVP (23:58)
[2025-03-15] VITALS (16 sets, daily range): BP systolic 99–115; BP diastolic 50–69; PULSE 69–98; RESP 15–20; TEMP 36.4–36.7; O2SAT 75–100
[2025-03-15] MEDS: ketorolac 30 mg/mL INJ 15 MG IVP ×2 (00:25→06:29)
[2025-03-15] MEDS: piperacillin-tazobactam 3.375 GM in sodium chloride 0.9% (plus) 50 ML IV ×2 (00:25→08:48)
[2025-03-15] MEDS: sodium chloride 0.9% 1,000 ML 125 ML IV (00:26)
[2025-03-15] MEDS: lactated ringers 1,000 ML 100 ML IV (04:43)
--- NOTE | 2025-03-15 08:01 | P.HP_ITS ---
Providers/Chief Complaint 2 Admitting Physician: Eriberto Olivares MD Chief Complaint: Lower R side ABD Pain going up C/B History of Present Illness Taina Kruger is a 25 year old female Who presents to the hospital with 24 hours of right lower quadrant abdominal pain associated with nausea and vomiting. Pain has been constant about 8 out of [address] scan done in the ER showed evidence of acute appendicitis. Review of Systems 2 General: Reports: 10 or more systems reviewed and unremarkable except in HPI and below Medications/Allergies Home Medications ?Medication ?Instructions ?Recorded ?Confirmed ?Last Taken ?Type loratadine 10 mg tablet (Claritin) 10 mg PO DAILY PRN Allergy Symptoms 08/06/20 08/29/24 06/24/24 History docosahexaenoic acid 200 mg 200 mg PO DAILY 05/08/24 1 10/29/23 06/24/24 History capsule ( DHA) acetaminophen 325 mg capsule 325 mg PO Q4H PRN fever o r pain 07/03/24 08/29/24 Unknown Rx #60 caps docusate sodium 100 mg capsule 100 mg PO BID #60 caps 07/03/24 08/29/24 Unknown Rx (Colace) ibuprofen 800 mg tablet 800 mg PO TID PRN pain #60 t abs 07/03/24 08/29/24 Unknown Rx sertraline 25 mg tablet (Zoloft) 25 mg PO DAILY #30 ta bs 09/18/24 Unknown Rx Allergies Allergy/AdvReac Type Severity Reaction Status Date / Time No Known Allergies Allergy Verified 08/29/24 13:53 PFSH Acute 2 PFSH: Medical History Acid reflux No pertinent past medical history neghx: htn,dm,thyroid,dvt/pe PCP: Dr. Simon Surgical History No pertinent past surgical history Family History Sister Diabetes Diabetes mellitus type 1 Brother Diabetes Cancer Diabetes mellitus type 1 Grandmother Diabetes Maternal Father Hypercholesteremia Diabetes mellitus, type 2 Denies family history of Colon cancer Ovarian cancer Clotting disorder Heart disease Breast cancer Bleeding disorder Hypertension Uterine cancer Thyroid disease Stroke Social History (Reviewed 08/29/24 @ 13:54 by Shashank Houston Smoking and tobacco/nicotine status: former use of tobacco/nicotine (former vape use) Female Reproductive History: Date of last menstrual period: 03/02/25 Vitals/I&O/Wt Last Vital Signs Temp 98.3 F 03/14/25 21:12 Pulse 78 03/15/25 07:42 Resp 16 03/15/25 05:30 BP 107/63 03/15/25 07:42 Pulse Ox 96 03/15/25 07:42 O2 Del Method Room Air 03/15/25 05:30 03/14/25 03/15/25 03/15/25 22:59 06:59 14:59 Intake Total 2049 Balance 2049 Weight last 48 hrs Weight 150 lb Physical Exam 2 GI: OTHER: Abdominal examination is benign the abdomen is soft there is tenderness in the right lower quadrant, no rebound tenderness, no peritoneal signs at the moment. Data 03/14/25 22:00 03/14/25 22:00 A&P Assessment and plan (1) Acute appendicitis: Plan After complete history, physical examination and review of all available clinical data the following is my assessment. Patient presents with acute appendicitis verified by imaging white count is 12 vitals are stable. She has been initiated on antibiotics and I have offered her a laparoscopic possible open appendectomy. All risk and benefits of the procedure have been discussed including the risk of bleeding, infection, hernia, injury to Explained surrounding structures including the colon, small bowel, great vessels, ureter. Risks of abscess formation, fistula formation or wound dehiscence. Patient shows understanding agrees to proceed. Of note in my personal review of imaging appendix noted to be in a retrocecal position. I have informed this to the patient and have noted that some mobilization of her colon may be required. PDMP PDMP Reviewed: Not Reviewed Attestations 2 Medical Necessity Statement*: Per medical team Coding Level of Care Code Acute Code for [facility] Diagnoses Acute appendicitis K35.80 Acute appendicitis type: unspecified acute appendicitis type
--- NOTE | 2025-03-15 10:39 | P.ANESASSM_ITS ---
Pre-Anesthetic Assessment Height/Weight: Height 5 ft 6 in Weight 150 lb Temp Pulse Resp BP Pulse Ox O2 Del Method 98 F 69 15 107/57 97 Room Air 03/15/25 09:20 03/15/25 09:20 03/15/25 09:20 03/15/25 09:20 03/15/25 09:20 03/15/25 09:20 Preop Diagnosis: Acute appendicitis Operation Date: 03/15/25 10:10 Proposed Procedures p Laparoscopic Appendectomy(Not Applicable) - Eriberto Olivares MD Was Beta Kailey taken within 24 hours: N/A Was Clonidine taken within 24 hours: N/A Social No alcohol and No tobacco Exam alert, oriented x 3, clear to auscultation bilaterally and regular rate & rhythm Airway Submandibular: within normal limits Cervical ROM: within normal limits Mallampati: Class II Dentition: full Anesthetic Plan ASA status: 1E Anesthesia: General Other: No prior issues with anesthesia NPO since yesterday morning. Last episode of emesis was around 2 AM today. Denies any current nausea Denies any cardiac or pulmonary issues METs greater than 4 Labs reviewed, WBC 12.1, hemoglobin 12.5 hCG negative Plan for GETA Medications/Allergies Home Medications ?Medication ?Instructions ?Recorded ?Confirmed ?Last Taken ?Type docosahexaenoic acid 200 mg 200 mg PO DAILY 05/08/24 0 03/15/25 03/13/25 History capsule ( DHA) ibuprofen 800 mg tablet 800 mg PO TID PRN pain #60 t abs 07/03/24 03/15/25 03/14/25 14:00 Rx sertraline 25 mg tablet (Zoloft) 25 mg PO DAILY #30 ta bs 09/18/24 03/15/25 03/13/25 20:00 Rx acetaminophen 325 mg capsule 650 mg PO Q4H PRN fever o r pain 03/15/25 03/15/25 Unknown History cetirizine 10 mg tablet (Zyrtec) 10 mg PO DAILY PRN Al lergy Symptoms 03/15/25 03/15/25 Unknown History Allergies Allergy/AdvReac Type Severity Reaction Status Date / Time No Known Allergies Allergy Verified 08/29/24 13:53 Current Medications Generic Name Dose Route Start Last Admin Trade Name Freq PRN Reason Stop Dose Admin Sodium Chloride 1,000 mls @ 125 mls/hr 03/15/25 00:15 03/15/25 06:03 Sodium Chloride 0.9% IV Infused .Q8H LORAINE Infusion Lactated Ringer's 1,000 mls @ 100 mls/hr 03/15/25 02:52 03/15/25 04:43 Lactated Ringers IV 100 mls/hr .Q10H LORAINE Administration Piperacillin Sod/Tazobactam 50 mls @ 12.5 mls/hr 03/15/25 08:00 03/15/25 08:48 Sod 3.375 gm/ Sodium Chloride IV 12.5 mls/hr Q8H LORAINE Administration Protocol Ketorolac Tromethamine 15 mg 03/15/25 06:15 03/15/25 06:29 Ketorolac 30 Mg/Ml Inj IVP 03/20/25 06:14 15 mg Q6H LORAINE Administration PFSH Anesthesia Medical History Acid reflux No pertinent past medical history neghx: htn,dm,thyroid,dvt/pe PCP: Dr. Simon Surgical History No pertinent past surgical history Family History Sister Diabetes Diabetes mellitus type 1 Brother Diabetes Cancer Diabetes mellitus type 1 Grandmother Diabetes Maternal Father Hypercholesteremia Diabetes mellitus, type 2 Denies family history of Colon cancer Ovarian cancer Clotting disorder Heart disease Breast cancer Bleeding disorder Hypertension Uterine cancer Thyroid disease Stroke Social History Smoking and tobacco/nicotine status: former use of tobacco/nicotine (former vape use) Female Reproductive History Date of last menstrual period: 03/02/25 Data Anesthesia 03/14/25 22:00 03/14/25 22:00 Short CBC 03/14/25 Range/Units 22:00 WBC 12.10 H (3.29-11.43) 10^3/uL Hgb 12.50 (11.27-16.99) g/dL Hct 38.5 (36-47) % MCV 85.0 (85-98) fl Plt Count 284 (157-399) 10^3/cmm Neut % (Auto) 80.7 % Neut # (Auto) 9.76 H (1.8-7.7) 10^3/uL BMP 03/14/25 22:00 Sodium 138 Potassium 3.9 Chloride 101 Carbon Dioxide 24 BUN 10 Creatinine 0.5 Glucose 105 Calcium 9.1 Liver Function 03/14/25 Range/Units 22:00 Total Bilirubin 0.3 (0.15-1.2) mg/dL AST 19 (0-32) U/L ALT 19 (0-33) U/L Alkaline Phosphatase 112 H (35-105) U/L Albumin 4.4 (3.5-5.2) g/dL Urine 03/14/25 Range/Units 22:38 Urine Color Yellow (Yellow) Urine Appearance Clear (CLEAR) Urine pH 7.0 (5-7) Ur Specific [place] 1.028 (1.005-1.030) Urine Protein Trace A (Negative) Urine Glucose (UA) Negative (Normal) Urine Ketones 2+ H (Negative) Urine Nitrate Negative (Negative) Urine Bilirubin Negative (Negative) Ur Leukocyte Esterase Negative (Negative) Urine RBC 6-10 (0-2) /hpf Urine WBC 0-5 (0-5) /hpf
[2025-03-15] MEDS: lidocaine-epi 1% 20 mL INJ INJECTION (11:34)
[2025-03-15] MEDS: BUPivacaine 0.25% INJ 10 mL INJECTION (11:34)
--- NOTE | 2025-03-15 12:23 | PM.OP ---
Operative Report Date of procedure: March 15, 2025 Pre-op diagnosis: Acute appendicitis Post-op diagnosis: same Post-op findings: There was an inflamed and thickened appendix Katharine retrocecal and partially retroperitoneal position. No perforation Procedure done: Laparoscopic appendectomy Specimens removed/disposition: Appendix Surgeon: Eriberto Olivares MD Architectural Coating Finisher: NELA OR Staff Estimated blood loss: 10 Complications: none apparent Brief History: 25-year-old female presented with acute appendicitis verified by imaging. The discussion of all risk and benefits as documented in my preop note we decided to proceed to the OR for laparoscopic appendectomy. Procedure: Patient was brought into the OR, she was placed in a supine position. General anesthesia was given. The abdomen was prepped and draped in the usual sterile fashion. A timeout was conducted. The abdomen was accessed via Millimeter Infraumbilical Incision with an Open Technique, Serrano Trocar Was Placed in the Abdomen and Initial Pneumoperitoneum Was Obtained. Laparoscopy Showed No Evidence of Visceral Injury during Entry. Trocar Was Fixed to the Fascia with #0 Vicryl. Additional 5 Mm Trocars Were Placed under Direct Visualization in the Suprapubic and Left Lower Quadrant Position. The Patient Was Placed in a Steep Trendelenburg Position with the Left Side down. The Appendix Was Identified at the Level of the Right Flank, Appendix Was in a retrocecal position, distal two thirds were intraperitoneal but the base of appendix was retroperitoneal. I started by mobilizing the base of the appendix and the cecum I took down some peritoneal attachments thus liberating the base of the appendix which allow me to have better access to the mesoappendix. I then took down the mesoappendix from the tip of the appendix to the base using LigaSure. The base of the appendix appeared dilated but healthy, I then transected the appendix at this level using a 45 mm blue load Endo FRANCO stapler. The specimen was removed in an Endo Catch bag. Umbilical trocar site. The staple line was evaluated appeared hemostatic and healthy. Final laparoscopy was done in the abdomen showing no evidence of any other pathology. I then proceeded to desufflate the abdomen for 1 minute to ensure no residual bleeding from the staple line was noted. Upon reinflation no residual bleeding was noted. The umbilical trocar site was closed with #0 Vicryl using a Frederick-Lnida suture passer. The suprapubic trocar was removed under direct visualization in the left lower quadrant trocar was used to acquire the pneumoperitoneum up subsequently removed. The wounds were then closed in layers in Explained #3 Vicryl for the subcutaneous tissue #4 Monocryl for the skin. Local anesthesia was infiltrated and Dermabond applied. At the end of the procedure all counts were correct the patient tolerated well the procedure was transferred to the PACU in stable condition
--- NOTE | 2025-03-15 12:28 | PM.DCS ---
Discharge Providers Date of Discharge: March 15, 2025 Attending Provider at Discharge: Eriberto Olivares MD Diagnoses at Discharge Discharge Diagnosis (1) Acute appendicitis: Status: Acute Qualifiers: Acute appendicitis type: unspecified acute appendicitis type Qualified Code(s): K35.80 - Unspecified acute appendicitis Reason for Visit Reason for Visit: Lower R side ABD Pain going up C/B Hospital Course Hospital Course 35-year-old female who presented with acute appendicitis verified with imaging. She was taken to the OR for laparoscopic appendectomy which was done without complications. Patient stable in the postoperative. And will be allowed to transition to the outpatient setting. Physical Exam GI: OTHER: Abdomen soft, appropriately tender surgical incisions covered with Dermabond. Discharge Data Studies Completed and Pending Completed Studies During Hospitalization Category Date Time Status CT abdomen pelvis w con* [id number] Stat Cat Scan 03/14/25 22:57 Completed Radiology Impressions Abdomen/Pelvis CT 03/14/25 22:57 IMPRESSION: 1. Acute appendicitis, no abscess or free air. 2. Small right ovarian cyst or follicle with trace free fluid. 3. Call to provider has been initiated. ADDENDUM: 03/14/25 4412 THIS REPORT CONTAINS FINDINGS THAT MAY BE CRITICAL TO PATIENT CARE. The findings were verbally communicated via telephone conference at 11:56 PM CDT on 03/14/2025 with MARGOT CAVANAUGH. The findings were acknowledged and understood. Laboratory Results WBC 12.10 10^3/uL (3.29-11.43) H 03/14/25 22:00 RBC 4.53 10^6/uL (3.85-5.65) 03/14/25 22:00 Hgb 12.50 g/dL (11.27-16.99) 03/14/25 22:00 Hct 38.5 % (36-47) 03/14/25 22:00 MCV 85.0 fl (85-98) 03/14/25 22:00 MCH 27.6 pg (27-33) 03/14/25 22:00 MCHC 32.5 g/dL (30-55) 03/14/25 22:00 RDW 13.0 % (12.1-15.1) 03/14/25 22:00 Plt Count 284 10^3/cmm (157-399) 03/14/25 22:00 MPV 8.7 fL (7.4-10.4) 03/14/25 22:00 Neut % (Auto) 80.7 % 03/14/25 22:00 Lymph % (Auto) 13.5 % 03/14/25 22:00 Wilkin % (Auto) 4.9 % 03/14/25 22:00 Eos % (Auto) 0.3 % 03/14/25 22:00 Baso % (Auto) 0.2 % 03/14/25 22:00 Neut # (Auto) 9.76 10^3/uL (1.8-7.7) H 03/14/25 22:00 Lymph # (Auto) 1.6 10^3/uL (0.8-4.8) 03/14/25 22:00 Wilkin # (Auto) 0.6 10^3/uL (0.2-0.9) 03/14/25 22:00 Eos # (Auto) 0.0 10^3/uL (0.0-0.8) 03/14/25 22:00 Baso # (Auto) 0.0 10^3/uL (0.0-0.1) 03/14/25 22:00 Nucleated RBC % (auto) 0 % 03/14/25 22:00 Nucleated RBCs # 0.0 /100WBC 03/14/25 22:00 Sodium 138 mmol/L (136-145) 03/14/25 22:00 Potassium 3.9 mmol/L (3.5-5.1) 03/14/25 22:00 Chloride 101 mmol/L (98-107) 03/14/25 22:00 Carbon Dioxide 24 mmol/L (22-29) 03/14/25 22:00 Anion Gap 16.9 (5-19) 03/14/25 22:00 BUN 10 mg/dL (6-20) 03/14/25 22:00 Creatinine 0.5 mg/dL (0.5-0.9) 03/14/25 22:00 GFR Calculation 150.3 mL/min (90-130) H 03/14/25 22:00 Glucose 105 mg/dL (65-115) 03/14/25 22:00 Calculated Osmolality 285 mOsm/kg (285-295) 03/14/25 22:00 Calcium 9.1 mg/dL (8.5-10.5) 03/14/25 22:00 Total Bilirubin 0.3 mg/dL (0.15-1.2) 03/14/25 22:00 AST 19 U/L (0-32) 03/14/25 22:00 ALT 19 U/L (0-33) 03/14/25 22:00 Alkaline Phosphatase 112 U/L (35-105) H 03/14/25 22:00 Total Protein 7.0 g/dL (6.6-8.7) 03/14/25 22:00 Albumin 4.4 g/dL (3.5-5.2) 03/14/25 22:00 Globulin 2.6 g/dL (1.3-4.6) 03/14/25 22:00 Lipase 19 U/L (13-60) 03/14/25 22:00 HCG, Qual Negative (Negative) 03/14/25 22:00 Urine Color Yellow (Yellow) 03/14/25:38 Urine Appearance Clear (CLEAR) 03/14/25: Urine pH 7.0 (5-7) 03/14/25:38 Ur Specific [place] 1.028 (1.005-1.030) 03/14/25: Urine Protein Trace (Negative) A 03/14/25 22: Urine Glucose (UA) Negative (Normal) 03/14/25: Urine Ketones 2+ (Negative) H 03/14/25 22:38 Urine Blood Non-haemolysed trace (Negative) 03/14/25: Urine Nitrate Negative (Negative) 03/14/25: Urine Bilirubin Negative (Negative) 03/14/25: Urine Urobilinogen 1.0 mg/dL (Negative) 03/14/25:38 Ur Leukocyte Esterase Negative (Negative) 03/14/25: Urine RBC 6-10 /hpf (0-2) 03/14/25 22: Urine WBC 0-5 /hpf (0-5) 03/14/25 22: Ur Squamous Epith Cells 0-5 /hpf (0-5) 03/14/25 22:38 Amorphous Sediment Not Reportable 03/14/25 22:38 Urine Bacteria None seen /hpf (NONE) 03/14/25 22: Hyaline Casts 0.81 /lpf 03/14/25 22:38 Vitals Last Vital Signs Temp 98 F 03/15/25 09:20 Pulse 69 03/15/25 09:20 Resp 15 03/15/25 09:20 BP 107/57 03/15/25 09:20 Pulse Ox 97 03/15/25 09:20 O2 Del Method Room Air 03/15/25 09:20 Discharge Plan Discharge Patient Disposition: Home Condition: Stable Prescriptions: New oxycodone 5 mg tablet 5 mg PO Q8H PRN (Reason: pain) 5 Days Qty: 14 0RF amoxicillin-pot clavulanate 875-125 mg tablet 1 tab PO BID 3 Days Qty: 7 0RF polyethylene glycol 3350 [Miralax] 17 gram powder in packet 17 g PO DAILY 7 Days Qty: 7 0RF Continued DHA 200 mg capsule 200 mg PO DAILY sertraline [Zoloft] 25 mg tablet 25 mg PO DAILY Qty: 30 4RF acetaminophen 325 mg capsule 650 mg PO Q4H PRN (Reason: fever or pain) cetirizine [Zyrtec] 10 mg Tablet 10 mg PO DAILY PRN (Reason: Allergy Symptoms) ibuprofen 800 mg tablet 800 mg PO TID PRN (Reason: pain) Qty: 60 0RF Discharge Orders: Discharge Order (Routine); Ordered 03/15/25 Ordered By: Eriberto Olivares Referrals: Eriberto Olivares MD [Physician, General Surgery] Referral Note: 2 weeks Discharge Diet: Advance as tolerated Discharge Activity: Limit activity as instructed Patient Instructions: Acute Wound Care (DC), Post Anesthesia Care Activity Restrictions/Additional Instructions: No heavy lifting over the next 4 to 6 weeks to prevent hernia this includes nothing over 15 pounds of weight. Walk is much as possible this will speed up your recovery. If you take the oxycodone please take the stool softener otherwise you will get constipated. You can shower starting the day after tomorrow with soap and water outnumber your wounds and then pat dry. Return to my office in 2 weeks for a postoperative check. If you have severe abdominal pain that is getting worse over time despite pain medication or if you have fever chills or discharge from your wounds please return to the hospital. Print Language: Surinamese Discharge Attestations Time Spent in Discharge Care*: less than 30 min Quality Metrics Clinical Quality Measures [ No reported AMI, CVA or VTE this stay] Coding Level of Care Code Acute Code for Chg Fwd Diagnoses Acute appendicitis K35.80 Acute appendicitis type: unspecified acute appendicitis type
[2025-03-15] MEDS: oxyCODONE 5 mg IR Tab/Cap PO ×2 (12:55→13:21)
--- NOTE | 2025-03-15 13:40 | SUR.PHASEII ---
1435 two Oxycodone 5 mg tablets sent home with patient for pain control until pharmacy opens.
== END 2025-03-15 13:34 | disposition home or self-care (01) ==
LOC: ER 03-15 00:07 → ER IP 03-15 03:49 → OR 03-15 09:04
PROVIDERS: Emergency Medicine; Emergency Provider Family Medicine; Visit Provider Surgery
PROC: 0DTJ4ZZ Resection of Appendix, Percutaneous Endoscopic Approach (ICD-10-PCS; CPT 44970; principal; 2025-03-15 10:00)
DX: K35.80 Unspecified acute appendicitis (principal); Z87.891 Personal history of nicotine dependence; K21.9 Gastro-esophageal reflux disease without esophagitis
CPT/HCPCS: 44970; 36415; 74177; 80053; 81001; 83690; 84703; 85025; 88304; A4216; J0131; J0330; J1171; J1885; J2250; J2270; J2405; J2543; J2704; J3010; J3490; J7030; J7120; J9999